=== PATIENT | female | born 2005 | race Caucasian/White ===

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

== ENCOUNTER 2025-04-21 16:37 | Emergency (ER) | payer MEDICAID, SELFPAY ==
[2025-04-21 17:03] VITALS: BP 129/78; PULSE 91; RESP 18; TEMP 37.2; O2SAT 96; BMI 43.8
--- NOTE | 2025-04-21 17:05 | ED_ITS ---
HPI - Skin/Abscess/Foreign Bdy General Chief complaint: Skin/Abscess/Foreign Body Stated complaint: Cyst on buttocks Time Seen by Provider: 04/21/25 21:42 Source: patient Mode of arrival: ambulatory Limitations: no limitations History of Present Illness ED Provider: Dr. Geneva Moreno HPI narrative: Patient comes to the emergency room complaining of a cyst in the lower back just above the buttocks. Patient states this is the 2nd time that she has a pilonidal cyst. Back in 2021 he had another cyst. Patient states this time it has been 3 days, no fever chills. Patient has been applying warm compresses, the cyst has not open yet or start draining. Related Data Home Medications ?Medication ?Instructions ?Recorded ?Confirmed fluoxetine 10 mg capsule 10 mg PO 01/02/23 multivitamin with folic acid 400 1 tab PO 01/02/23 mcg tablet (Daily-Mabel (with folic acid)) omeprazole 20 mg capsule,delayed 20 mg PO 01/02/23 release topiramate 25 mg tablet 25 mg PO 01/02/23 Previous Rx's ?Medication ?Instructions ?Recorded ibuprofen 600 mg tablet 600 mg PO Q6H PRN pain #30 tabs 12/26/22 cephalexin 500 mg capsule 500 mg PO BID #14 caps 04/21/25 doxycycline hyclate 100 mg tablet 100 mg PO BID #14 tabs 04/21/25 tramadol 50 mg tablet 50 mg PO BID PRN pain #7 tabs 04/21/25 Allergies Allergy/AdvReac Type Severity Reaction Status Date / Time No Known Allergies Allergy Verified 04/21/25 17:03 [No Known Allergies*] Review of Systems Review of Systems: Constitutional : No Weight loss, No Fever, No Chills, No Night Sweats, No Fatigue, No Malaise ENT/Mouth : No Hearing loss, No Ear Pain, No Nasal Congestion, No Sinus Pain, No Hoarseness, No sore throat, No Rhinorrhea, No Swallowing Difficulty Eyes: No Eye Pain, No Swelling, No Redness, No Foreign Body, No Discharge, No Vision Changes Cardiovascular : No Chest Pain, No SOB, No Dyspnea on Exertion, No Orthopnea, No Edema, No Palpitations Respiratory : No Cough, No Sputum, No Wheezing, No Smoke Exposure, No Dyspnea Gastrointestinal : No Nausea, No Vomiting, No Diarrhea, No Constipation, No abdominal Pain, No Hematochezia, No Melena Genitourinary : no irregular bleeding, No Dysuria, No Urinary Frequency, No Hematuria, No Urinary Incontinence, No Urgency, No Flank Pain, No Urinary Flow Changes, No Hesitancy Musculoskeletal : No joint pain, No Myalgias, No Joint Swelling Skin : Complaining of a pilonidal cyst Neuro : No Weakness, No Numbness, No Paresthesias, No Loss of Consciousness, No Dizziness, No Headache Psych : No Anxiety/Panic, No Depression, No SI/HI/AH/VH, No Social Issues, Heme/Lymph: No Bruising, No Bleeding,No Lymphadenopathy Endocrine : No Polyuria, No Polydipsia, No Temperature Intolerance FORMERLY [facility], [facility]–1983 Past Medical History Medical History Iron (Fe) deficiency anemia Depressed Acid reflux Anxiety Social History Social History Smoked in Last 30 Days: No Use of substances other than those prescribed or required for medical reasons: Yes Substance Use Type: Marijuana Substance Use Frequency: Chronic Longstanding Advance Directives: No Advance Directives Information Provided: No Patient : No Current occupational status: student Current occupation: rt hand Physical Exam Vital Signs: Vital Signs: Last Vital Signs Temp 97.8 F 04/21/25 20:27 Pulse 96 04/21/25 20:27 Resp 20 04/21/25 20:27 BP 107/61 04/21/25 20:27 Pulse Ox 99 04/21/25 20:27 O2 Del Method Room Air 04/21/25 20:27 BMI result Body Mass Index 43.8 Const: Other: Appearance: Alert. Oriented X3. No acute distress. Eyes: Pupils equal, round and reactive to light. ENT: Pharynx normal. Neck: Normal inspection. Neck supple. No lymph nodes noted. No crepitus CVS: Normal heart rate and rhythm. Pulses normal. Normal S1 and S2 Respiratory: No respiratory distress. Breath sounds normal. No Wheezing. No rales Abdomen: Soft and nontender. No rigidity. No distention. Skin: Skin warm and dry. Normal skin color. Normal skin turgor. With bedside ultrasound, 2.5 cm abscess was found, a proximally 3 cm long. Extremities: No lower extremity edema. No Lacerations. No Rash Neuro: Oriented X 3. No motor deficit. No sensory deficit. Moving all extremities. No slurred speech. CN 2 through 12 grossly intact Psych: calm, cooperative, normal affect Course Course Course Narrative: 04/21/25 1706 SERGEY [place] This is a Rapid Medical Examination (RME) performed by Haylee Vernon PA-C in triage. Full HPI, ROS, assessment and treatment plan per primary provider in the Main ED. Hx: 20 yo female hx pilonidal cyst/abscess here for eval of cyst to middle buttock x3 days. no drainage. hx similar requiring I&D. no fever, chills. PE/vitals: area not examined in triage Plan: further eval in back +/- I&d Medications Administered Discontinued Medications Generic Name Dose Route Start Last Admin Trade Name Wilmarq PRN Reason Stop Dose Admin Lidocaine/Epinephrine 20 ml 04/21/25 21:52 04/21/25 22:55 Lidocaine Hcl 1%/Epi 1:100,000 20 Ml Vial INFILTRATI 04/21/25 21:53 20 ml ONCE ONE Administration Oxycodone HCl 5 mg 04/21/25 21:53 04/21/25 22:55 Oxycodone Hcl Immed Release 5 Mg Tablet PO 04/21/25 21:54 5 mg ONCE ONE Administration Medical Decision Making Medical Decision Making [facility] Narrative: I discussed the physical exam with the patient, this pilonidal cyst needs draining. Patient agrees with the plan. Patient was numb with 10 mL of 1% lidocaine with epinephrine. A proximally 15 mL pus was drained. The cyst was rinsed multiple times with normal saline. Then it was packed. Procedures Abscess I/D Site: other (Pilonidal cyst) Local Anesthetic: lidocaine 1% and with epi Amount of anesthesia used (mL): 10 Technique: incised with blade and ultrasound guided Amount of fluid expressed (mL): 15 Sent for culture/gram staining?: No Irrigation: Yes Packing used?: iodoform Critical Care Time Critical Care Time Critical Care Time: Yes Total Critical Care Time: 35 Attestation: I have personally provided critical care time. Time includes review of lab data, radiology results, discussion with consultants, and monitoring for potential decompensation. Intervention performed as documented. Discharge Plan Discharge Clinical Impression: Cyst, pilonidal, with abscess Patient Disposition: Home, Self-Care Instructions: Pilonidal Cyst (ED) Additional Instructions: Please follow-up with your primary care physician tomorrow. If you have any worsening or new symptoms, please return to the emergency room or call 911 Prescriptions: New cephalexin 500 mg capsule 500 mg PO BID Qty: 14 0RF doxycycline hyclate 100 mg tablet 100 mg PO BID Qty: 14 0RF tramadol 50 mg tablet 50 mg PO BID PRN (Reason: pain) Qty: 7 0RF No Action ibuprofen 600 mg tablet 600 mg PO Q6H PRN (Reason: pain) Qty: 30 0RF fluoxetine 10 mg capsule 10 mg PO topiramate 25 mg tablet 25 mg PO multivitamin with folic acid [Daily-Mabel (with folic acid)] 400 mcg tablet 1 tab PO omeprazole 20 mg capsule,delayed release(DR/EC) 20 mg PO Referrals: Jerrod Zamarripa MD [Physician] - 04/26/25 Print Language: Romansh
[2025-04-21 20:27] VITALS: BP 107/61; PULSE 96; RESP 20; TEMP 36.6; O2SAT 99
--- OUTSIDE RECORDS SUMMARY | 2025-04-21 20:37 | XMS_ITS | Clinical Summary ---
Author Organization [facility] Address [address] [place] [address] Phone Care Team Providers Care Pbx Manager Name Role Phone Physician, No Pcp Primary Care Provider Unavaila ble Allergies No known active allergies Medications methocarbamoL (ROBAXIN) 750 mg tablet Take 1 tablet (750 mg total) by mouth 4 (four) times a day. 12 each 01/04/2025 Active Active Problems No known active problems Medical History Medical History Date Comments Asthma Social History Tobacco Use Types Packs/Day Years Used Date Smoking Tobacco: Never Assessed Comments Unknown Sex and Gender Information Value Date Recorded Sex Assigned at Female 01/04/2025 8:24 PM EST Legal Sex Female 5:00 PM EST Gender Identity Female 01/04/2025 8:24 PM EST Sexual Orientation Straight 01/04/2025 8: 24 PM EST Obstetrics History Comments IMPLANT BC Last Filed Vital Signs Vital Sign Reading Time Taken Comments Blood Pressure 123/75 01/04/2025 5:27 PM EST Pulse 80 01/04/2025 5:27 PM EST Temperature 37.1 ??C (98.8 ??F) 01/04/2025 5:27 PM ES T Respiratory Rate 18 01/04/2025 5:27 PM EST Oxygen Saturation 97% 01/04/2025 5:27 PM EST Inhaled Oxygen Concentration - - Weight 104 kg (230 lb) 01/04/2025 5:27 PM EST Height 157.5 cm (5' 2 ) 01/04/2025 5:27 PM EST Body Mass Index 42.07 01/04/2025 5:27 PM EST Plan of Treatment Health Maintenance Due Date Last Done Comments Pneumococcal Vaccine: Pediatrics (0 to 5 Years) and At-Risk Patients (6 to 64 Years) (1 of 1 - PPSV23) 02/05/2010 05/10/2005, 2004, 2004, Additional history exists Meningococcal B Vaccine (1 of 2 - Standard) 2020 Gonorrhea/Chlamydia Screening 04/23/2024 04/23/2023 COVID-19 Vaccine ( - season) 2024 Annual Well Child Visit (3-21 years old) 01/05/2025 03/12/2023 Depression Screening 01/05/2025 03/26/2023 Hepatitis C Screening 01/05/2025 Social Influencers of Health Screening 01/05/2025 Cervical Cancer Screening: Pap Smear 02/05/2025 Influenza Vaccine (Season Ended) 2025 11/01/2021, 09/08/2020, 10/17/2006, Additional history exists Cholesterol Screening (Lipid Panel) 01/17/2028 01/16/2023 DTaP,Tdap,and Td Vaccines (8 - Td or Tdap) 10/12/2032 10/12/2022, 08/03/2015, 04/04/2008, Additional history exists Hepatitis B Vaccines Completed 2004, 2004, 2004 HIB Vaccines Completed 05/10/2005, 07/20, 2004, Additional history exists IPV Vaccines Completed 03/31/2008, 07/20, 2004, Additional history exists MMR Vaccines Completed 03/31/2008, 02/07/2005 Varicella Vaccines Aged Out 04/04/2008, 02/07/2005 No longer eligible based on patient's age to complete this topic Hepatitis A Vaccines Completed 04/13/2011, 04/11/20 10 HPV Vaccines Completed 08/14/2016, 08/03/2015 Meningococcal ACWY Vaccine Completed 09/08/2020, HIV Screening Completed 07/17/2022 RSV Immunization Patients Under 20 months Aged Out No longer eligible based on patient's age to complete this topic Insurance [employer] Care Teams Pbx Manager Relationship Specialty Start Date End Date Physician, No Pcp PCP - General 01/04/25
[2025-04-21] MEDS: Lidocaine HCl 1%/Epi 1:100,000 20 ML VIAL INFILTRATI (22:55)
[2025-04-21] MEDS: oxyCODONE HCl Immed Release 5 MG TABLET PO (22:55)
[2025-04-21] MEDS: Doxycycline Monohydrate 100 MG CAPSULE PO (23:11)
[2025-04-21] MEDS: cephALEXin 500 MG CAPSULE PO (23:11)
[2025-04-21 23:29] VITALS: BP 107/61; PULSE 96; RESP 20; TEMP 36.6; O2SAT 99
== END 2025-04-21 23:20 | disposition home or self-care (01) ==
PROVIDERS: Emergency Provider Emergency Medicine
DX: L05.01 Pilonidal cyst with abscess (principal); L72.9 Follicular cyst of the skin and subcutaneous tissue, unspecified
CPT/HCPCS: 10060; 99284; J2004

== ENCOUNTER 2025-11-06 23:22 | Emergency (ER) | payer OTHER, SELFPAY ==
[2025-11-06 23:29] VITALS: BP 118/78; PULSE 112; RESP 18; TEMP 36.7; O2SAT 97; BMI 43.9
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
--- OUTSIDE RECORDS SUMMARY | 2025-11-07 00:41 | XMS_ITS | Clinical Summary ---
Author Organization [facility] Address [address] [place] [address] Care Team Providers Care Gelatin Powder Mixer Name Role Phone Preet Forrest MD Primary Care Provider Source Comments Please note that some or all of the patient's information could have additional privacy protections. State laws allow health care providers to render certain types of treatment to minors without parental consent. Please do not assume that this information can be shared solely by obtaining just the consent of the patient's parent/guardian. Please determine if all or part of the patient's care was rendered without parent/guardian involvement. And, if so, obtain the minor's consent prior to disclosure.[facility] Allergies Active Allergy Reactions Criticality Noted Date Comments Seasonal 07/21/2020 Medications DAILY-RASHAUN tablet TK 1 T PO D 0 Active cetirizine (ZYRTEC) 10 MG tablet TAKE 1 TABLET BY MOUTH EVERY DAY FOR ALLERGIES 1 Active ofloxacin (OCUFLOX) 0.3 % ophthalmic solution INSTILL 5 DROP BOTH EARS TWICE DAILY FOR 7 DAYS 1 Active EPINEPHrine (EPIPEN) 0.3 mg/0.3 mL injection Inject 0.3 mg into the muscle as needed for Anaphylaxis Active ALBUTEROL INHL Inhale into the lungs Active Active Problems No known active problems Social History Tobacco Use Types Packs/Day Years Used Date Smoking Tobacco: Never Smokeless Tobacco: Never Other Needs Answer Date Recorded Anything else about your child you'd like help w ith? Not on file 08/02/2023 Share good news about positive changes: Not on f ile 08/02/2023 Comments No Sex and Gender Information Value Date Recorded Sex Assigned at Not on file Legal Sex Female 9:01 AM EDT Gender Identity Not on file Sexual Orientation Not on file Last Filed Vital Signs Vital Sign Reading Time Taken Comments Blood Pressure 110/67 11/02/2021 8:26 AM EST Pulse 75 11/02/2021 8:26 AM EST Temperature - - Respiratory Rate - - Oxygen Saturation - - Inhaled Oxygen Concentration - - Weight 98.6 kg (217 lb 6 oz) 11/02/2021 8:26 AM EST Height 157.3 cm (5' 1.93 ) 11/02/2021 8:26 AM ES T Body Mass Index 39.85 11/02/2021 8:26 AM EST Plan of Treatment Health Maintenance Due Date Last Done Comments DTaP/TDAP/TD VACCINES (1 - Tdap) 02/05/2011 ADOLESCENT HIV SCREENING 02/05/2017 COVID-19 Vaccine (2023-2 5 season) 2025 INFLUENZA (#1) 2025 NIRSEVIMAB VACCINES UNDER 8 MONTHS Aged Out No longer eligible based on patient's age to complete this topic Insurance [facility] MEDICAID Care Teams Gelatin Powder Mixer Relationship Specialty Start Date End Date Preet Forrest MD PCP - General General Pediatrics 05/27/20
--- OUTSIDE RECORDS SUMMARY | 2025-11-07 00:41 | XMS_ITS | Clinical Summary ---
Author Organization [facility] Address [address] [place] [address] Phone Care Team Providers Care Crowning Inspector Name Role Phone Physician, No Pcp Primary [...] Orientation Straight 01/04/2025 8: 24 PM EST Last Filed Vital Signs Vital Sign Reading Time Taken Comments Blood Pressure 123/75 01/04/2025 5:27 PM EST Pulse 80 01/04/2025 5:27 PM EST Temperature 37.1 C (98.8 F) 01/04/2025 5:27 PM EST Respiratory Rate 18 01/04/2025 5:27 PM EST [...] 5 Years) and At-Risk Patients (6 to 49 Years) (1 of 1 - PPSV23, PCV20, or PCV21) 02/05/2010 05/10/2005, 2004, 2004, Additional history exists Meningococcal B Vaccine (1 of 2 - Standard) 2020 Gonorrhea/Chlamydia Screening 04/23/2024 04/23/2023 Depression Screening 11/18/2024 Annual Well Child Visit (3-21 years old) 01/05/2025 03/12/2023 Hepatitis C Screening 01/05/2025 Social Influencers of Health Screening 01/05/2025 Cervical Cancer Screening: Pap Smear 02/05/2025 COVID-19 Vaccine ( season) 2025 Influenza Vaccine (#1) 2025 , 09/08/2020, 10/17/2006, Additional history exists Cholesterol Screening (Lipid Panel) 01/17/2028 01/16/2023 DTaP,Tdap,and Td Vaccines (8 - Td or Tdap) 10/12/2032 10/12/2022, 08/03/2015, 04/04/2008, Additional history exists RSV Immunization Adult Patients (1 - 1-dose 75+ series) 02/05/2079 Hepatitis B Vaccines Completed 2004, 2004, 2004 HIB Vaccines Completed 05/10/2005, 07/20, 2004, Additional history exists IPV Vaccines Completed 03/31/2008, 07/20, 2004, Additional history exists MMR Vaccines Completed 03/31/2008, 02/07/2005 Varicella Vaccines Completed 04/04/2008, 02/07/2005 Hepatitis A Vaccines Completed 04/13/2011, 04/11/20 10 HPV Vaccines Completed 08/14/2016, 08/03/2015 Meningococcal ACWY Vaccine Completed 09/08/2020, HIV Screening Completed 07/17/2022 RSV Immunization Patients Under 20 months Aged Out No longer eligible based on patient's age to complete this topic Insurance [employer] Care Teams Crowning Inspector Relationship Specialty Start Date End Date Physician, No Pcp PCP - General 01/04/25
--- OUTSIDE RECORDS SUMMARY | 2025-11-07 00:41 | XMS_ITS | Clinical Summary ---
Author Organization [facility] Address [address] [place] [id number] Phone Care Team Providers Care Cytogenetics Technologist Name Role Phone Preet Forrest MD Primary Care Provider Allergies No known active allergies Medications No known medications Active Problems No known active problems Social History Tobacco Use Types Packs/Day Years Used Date Smoking Tobacco: Never Assessed Education Answer Date Recorded Are you interested in more education? Not on helene e 03/15/2023 Are you concerned about learning? Not on file 03/15/2023 No 03/15/2023 No 03/15/2023 Digital Access Answer Date Recorded No 04/16/2023 No 04/16/2023 No 04/16/2023 Reliable internet access at home? Not on file 04/16/2023 Device with a working camera? Not on file Comments Unknown Sex and Gender Information Value Date Recorded Sex Assigned at Not on file Legal Sex Female 9:36 AM EDT Gender Identity Not on file Sexual Orientation Not on file Last Filed Vital Signs Vital Sign Reading Time Taken Comments Blood Pressure 120/78 05/28/2018 10:38 AM EDT Pulse 76 05/28/2018 10:38 AM EDT Temperature 36.5 C (97.7 F) 05/28/2018 10:38 AM EDT Respiratory Rate 18 05/28/2018 10:38 AM EDT Oxygen Saturation - - Inhaled Oxygen Concentration - - Weight 107.5 kg (237 lb) 05/28/2018 10:38 AM EDT Height 158 cm (5' 2.21 ) 05/28/2018 10:38 AM EDT Body Mass Index 43.06 05/28/2018 10:38 AM EDT Plan of Treatment Health Maintenance Due Date Last Done Comments DEPRESSION SCREENING 2016 SMOKING Hx and SMOKELESS TOBACCO SCREENING 02/05/2017 CHLAMYDIA SCREENING 2020 MENINGOCOCCAL VACCINES (B) (1 of 2 - Standard) 2020 ADOLESCENT UNIVERSAL LIPID SCREENING 02/05/2021 HEPATITIS C SCREENING 02/05/2022 HIV ONE-TIME SCREENING (18-65 YEARS) 02/05/2022 PAP SMEAR 02/05/2025 INFLUENZA VACCINE (#1) 2025 0, 10/17/2006, 09/04/2005, Additional history exists COVID-19 VACCINE ( - 2024- season) 2025 Adult Td,Tdap Booster 08/03/2025 08/03/2015 COMBINED DTaP,Tdap,Td (7 - Td or Tdap) 08/03/2025 08/03/2015, 04/04/2008, 05/10/2005, Additional history exists HIB VACCINES Completed 05/10/2005, 07/20, 2004, Additional history exists PNEUMOCOCCAL VACCINES (0-49 years) Aged Out 05/10/2005, 2004, 2004, Additional history exists No longer eligible based on patient's age to complete this topic MMR VACCINES Completed 03/31/2008, 02/07/2005 HEPATITIS A VACCINES Completed 04/13/2011, 04/11/20 10 HPV VACCINES Completed 08/14/2016, 08/03/2015 MENINGOCOCCAL VACCINES (ACWY) Completed 09/08/2020, 08/03/2015 Medical Devices Not on file Insurance [facility] C3 ACO C3 ACO C3 ACO C3 ACO C3 ACO C3 ACO C3 ACO [facility] C3 ACO Care Teams Cytogenetics Technologist Relationship Specialty Start Date End Date Preet Forrest MD [address] [place] [address] [phone] PCP - General Pediatrics 05/19/18 Additional Source Comments The information contained in this document represents components of the legal health record. It is not the complete legal health record.[facility]
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
--- OUTSIDE RECORDS SUMMARY | 2025-11-07 00:41 | XMS_ITS | Data Portability ---
Author Organization [place] - [facility], Allergy Address [address] [place] [id number] Care Team Providers Care Operations Leader Name Role Phone GRANT ALEJANDRO Primary Care Provider Assessment Encounter Date Assessment Date Assessment LastModified by Organization Details LastModified Time 11/09/2024 11/09/2024 19yo F with allergic rhinitis and history of bilateral chronic serous otitis s/p tubes x3 presents for evaluation of bilateral otorrhea. Otorrhea was self-limiting and hearing returned to baseline. Patient reports one ear infection in the last year. Cerumen impaction removed from the left EAC, which patient tolerated well. Otologic exam demonstrated TMs are intact with patchy tympanosclerosis . Middle ear spaces appear well-aerated. Bilateral PE tubes removal and paper patch myringoplasty on 09/[address] Last. Recommend Q-tip avoidance. Recommend follow-up as needed. [email or web address] Not available 11/09/2024 13:51:51 Plan of Treatment Reminders Order Date Submit Date Provider Last Modified By Organization Details Last Modified Time Details Appointments Establish ed 15 2025 02:45P M TONY HAMILTON PA-C Not available Not available Not available Lab None recorded. Referral None recorded. Procedures None recorded. Surgeries None recorded. Imaging None recorded. Medication Orders None recorded. Patient TargetsNo targets recorded. Patient InstructionsNo instructions recorded. Reason for Referral None Reported. Problems Name Problem SNOMED Code Status Onset Date Resolution Date Notes Provider Name and Address Organization Details Recorded Time Dysfuncti on of eustachia n tube 34865203 Active 2013 Eustachia n tube dysfuncti on; CMS Risk: low risk CMS Treatment : establish ed problem (to examiner) : unstable or worsening Note: Date Diagnosed : 4 9:32 AM (381.81) Not Available formerly [facility] 02:41:52 Allergic rhinitis 86766430 Active 2014 Allergic rhinitis: Due to other allergen; CMS Risk: low risk CMS Treatment : establish ed problem (to examiner) : stable or improved Note: Changed from 477 to 477.8 (10/28/20 11:15 AM) , Date Diagnosed : 4 9:32 AM (477) ; Start Date : 4 Allergi c rhinitis: Due to other allergen; CMS Risk: low risk CMS Treatment : establish ed problem (to examiner) : stable or improved Note: Date Diagnosed : 11/28/2021 9:40 AM (477.8) ; Start Date : 4 Allergi c rhinitis: Due to other allergen; CMS Risk: low risk CMS Treatment : establish ed problem (to examiner) : stable or improved Note: Date Diagnosed : 11/19/2019 1:12 PM (477.8) ; Start Date : 4 Allergi c rhinitis: Due to other allergen; CMS Risk: low risk CMS Treatment : establish ed problem (to examiner) : stable or improved Note: Date Diagnosed : 12/09/2020 1:29 PM (477.8) ; Start Date : 4 Allergi c rhinitis: Due to other allergen; CMS Risk: low risk CMS Treatment : establish ed problem (to examiner) : stable or improved Note: Date Diagnosed : 12/16/2019 2:15 PM (477.8) ; Start Date : 4 Allergi c rhinitis: Due to other allergen; CMS Risk: low risk CMS Treatment : establish ed problem (to examiner) : stable or improved Note: Date Diagnosed : 12/16/2020 1:43 PM (477.8) ; Start Date : 4 Allergi c rhinitis: Due to other allergen; CMS Risk: low risk CMS Treatment : establish ed problem (to examiner) : stable or improved Note: Date Diagnosed : 11/25/2020 1:56 PM (477.8) ; Start Date : 4 Allergi c rhinitis: Due to other allergen; CMS Risk: low risk CMS Treatment : establish ed problem (to examiner) : stable or improved Note: Date Diagnosed : 11/26/2019 2:02 PM (477.8) ; Start Date : 4 Allergi c rhinitis: Due to other allergen; CMS Risk: low risk CMS Treatment : establish ed problem (to examiner) : stable or improved Note: Date Diagnosed : 2 3:43 PM (477.8) ; Start Date : 4 Allergi c rhinitis: Due to other allergen; CMS Risk: low risk [facility] Treatment : establish ed problem (to examiner) : stable or improved Note: Date Diagnosed : 1 2:01 PM (477.8) ; Start Date : 4 Allergi c rhinitis: Due to other allergen; CMS Risk: low risk [facility] Treatment : establish ed problem (to examiner) : stable or improved Note: Date Diagnosed : 9 2:19 PM (477.8) ; Start Date : 4 Allergi c rhinitis: Due to other allergen; CMS Risk: low risk [facility] Treatment : establish ed problem (to examiner) : stable or improved Note: Date Diagnosed : 9 1:19 PM (477.8) ; Start Date : 4 Allergi c rhinitis: Due to other allergen; CMS Risk: low risk [facility] Treatment : establish ed problem (to examiner) : stable or improved Note: Date Diagnosed : 1 1:21 PM (477.8) ; Start Date : 4 Allergi c rhinitis: Due to other allergen; CMS Risk: low risk [facility] Treatment : establish ed problem (to examiner) : stable or improved Note: Date Diagnosed : 9 10:09 AM (477.8) ; Start Date : 4 Allergi c rhinitis: Due to other allergen; CMS Risk: low risk [facility] Treatment : establish ed problem (to examiner) : stable or improved Note: Date Diagnosed : 08/20/2019 5:24 PM (477.8) ; Start Date : 4 Allergi c rhinitis: Due to other allergen; CMS Risk: low risk CMS Treatment : establish ed problem (to examiner) : stable or improved Note: Date Diagnosed : 1 1:58 PM (477.8) ; Start Date : 4 Allergi c rhinitis: Due to other allergen; CMS Risk: low risk CMS Treatment : establish ed problem (to examiner) : stable or improved Note: Date Diagnosed : 0 11:00 AM (477.8) ; Start Date : 4 Allergi c rhinitis: Due to other allergen; CMS Risk: low risk CMS Treatment : establish ed problem (to examiner) : stable or improved Note: Date Diagnosed : 9 1:41 PM (477.8) ; Start Date : 4 Allergi c rhinitis: Due to other allergen; CMS Risk: low risk [facility] Treatment : establish ed problem (to examiner) : stable or improved Note: Date Diagnosed : 9 11:27 AM (477.8) ; Not Available formerly [facility] 4 02:41:43 Bilateral disorder of Eustachia n tubes 15689206343 46854 Active 2014 Other specified disorders of Eustachia n tube, bilateral ; Note: Date Diagnosed : 5 9:26 AM (H69.83) Not Available [facility] 4 02:41:46 Bilateral chronic serous otitis 510436439 Active 2019 Chronic serous otitis media, bilateral ; Note: Date Diagnosed : 04/05/2020 10:19 AM (H65.23) Not Available formerly [facility] 4 02:41:49 Conductiv e hearing loss, bilateral 606191966 Active 2019 Conductiv e hearing loss, bilateral ; Note: Date Diagnosed : 04/05/2020 9:45 AM (H90.0) Not Available [facility] 4 02:41:45 Impacted cerumen of bilateral ears 93759373086 94397 Active 2019 Impacted cerumen, bilateral ; Note: Date Diagnosed : 0 2:09 PM (H61.23) Not Available [facility] 4 02:41:49 Allergic rhinitis caused by pollen 60649162 Active 2020 Allergic rhinitis due to pollen; Note: Date Diagnosed : 10/19/2021 2:31 PM (J30.1) Allergi c rhinitis due to pollen; Note: Date Diagnosed : 0 2:09 PM (J30.1) ; Start Date : 0 Allergi c rhinitis due to pollen; Note: Date Diagnosed : 9 10:16 AM (J30.1) ; Start Date : 9 Allergi c rhinitis due to pollen; Note: Date Diagnosed : 9 10:28 AM (J30.1) ; Start Date : 9 Allergy NOS due to pollen; Note: Date Diagnosed : 9 10:16 AM (J30.1) ; Start Date : 9 Allergi c rhinitis due to pollen; Note: Date Diagnosed : 7 3:10 PM (J30.1) ; Start Date : 7 Not Available formerly [facility] 4 02:41:49 Otorrhea of bilateral ears 37237722175 77981 Active 2021 Otorrhea, bilateral ; Note: Date Diagnosed : 11/28/2021 12:43 PM (H92.13) Not Available formerly [facility] 4 02:41:52 Otorrhea of right ear 85872570319 82770 Active 2021 Otorrhea, right ear; Note: Date Diagnosed : 03/22/2022 1:52 PM (H92.11) Not Available formerly [facility] 4 02:41:47 Otorrhea of left ear 43257412457 89504 Active 2022 Otorrhea, left ear; Note: Date Diagnosed : 04/02/2023 4:14 PM (H92.12) Not Available formerly [facility] 4 02:41:45 Problem Notes None recorded. Procedures Surgical History Date Name Laterality Status Provider Name and Address Organization Details Recorded Time 4 Cerumen removal without microscope left completed TONY HAMILTON PA-C [address] [place] [address], [phone], [facility] - [facility] 11/09/2024 13:44:34 Imaging Results None recorded. Procedure Notes None recorded. Medical Equipment None Reported. Medications Name Sig Start Date Stop Date Status Note LastModified by Organization Details LastModified Time fluoxetin e 40 mg capsule 03/05 completed Medicati on ID: [id number] D uration Value: 30 Brand Name: fluoxeti ne Send Method: E-Prescr ibed Sub s Allowed: subs OK Speci al Instruct ion: take 1 capsule by mouth once daily Me dication GenericN yulisa: fluoxeti ne Not Available Not Available Not Available cetirizin e 10 mg tablet 03/05 completed Medicati on ID: [id number] D uration Value: 30 Brand Name: cetirizi ne Send Method: E-Prescr ibed Sub s Allowed: subs OK Speci al Instruct ion: take 1 tablet by mouth once daily if needed for allergie s Medica tionGene ricName: cetirizi ne Not Available Not Available Not Available topiramat e 25 mg tablet active Medicati on ID: [id number] B rand Name: topirama te Send Method: E-Prescr ibed Sub s Allowed: subs OK Speci al Instruct ion: TAKE 1 TABLET BY MOUTH EVERY NIGHT AT BEDTIME Medicati onGeneri cName: topirama te Not Available Not Available Not Available Ciloxan 0.3 % eye drops 2019 active Medicati on ID: [id number] D uration Value: 5 Prescri bed By Name: Jm Plasencia nd Name: Ciloxan Send Method: E-Prescr ibed Sub s Allowed: subs OK Speci al Instruct ion: Instill 4 drops twice a day into the affected ear Medi cationGe nericNam e: Ciloxan Not Available Not Available Not Available sulfameth oxazole 800 mg-trimet hoprim 160 mg tablet TAKE 1 TABLET BY MOUTH TWICE A DAY FOR 7 DAYS active Not Available Not Available No t Available tramadol 50 mg tablet TAKE 1 TABLET BY MOUTH 2 TIMES A DAY NEEDED FOR PAIN active Not Available Not Available No t Available lidocaine -prilocai ne 2.5 %-2.5 % topical cream 03/15 completed Medicati on ID: [id number] Pre scribed By Name: Jm Plasencia nd Name: lidocain e-priloc chris Sen d Method: E-Prescr ibed Sub s Allowed: subs OK Speci al Instruct ion: apply to bilateal upper arms one hour prior to testing Medicati onGeneri cName: lidocain e-priloc chris Not Available Not Available Not Available cephalexi n 500 mg capsule TAKE ONE TABLET BY MOUTH TWO TIMES A DAY 10/18 completed Not Available Not Available Not Available fluoxetin e 10 mg capsule active Medicati on ID: [id number] B rand Name: fluoxeti ne Send Method: E-Prescr ibed Sub s Allowed: subs OK Speci al Instruct ion: TAKE ONE CAPSULE BY MOUTH DAILY IN THE MORNING Medicati onGeneri cName: fluoxeti ne Not Available Not Available Not Available omeprazol e 20 mg capsule,d elayed release active Medicati on ID: [id number] B rand Name: omeprazo le Send Method: E-Prescr ibed Sub s Allowed: subs OK Medic ationGen ericName : omeprazo le Not Available Not Available Not Available epinephri ne 0.3 mg/0.3 mL injection , auto-inje ctor Inject 1 pen injector single dose as needed 03/05 completed Medicati on ID: [id number] D uration Value: 1 Brand Name: epinephr ine Send Method: E-Prescr ibed Sub s Allowed: subs OK Medic ationGen ericName : epinephr ine Not Available Not Available Not Available ibuprofen 600 mg tablet active Medicati on ID: [id number] B rand Name: ibuprofe n Send Method: E-Prescr ibed Sub s Allowed: subs OK Speci al Instruct ion: TAKE 1 TABLET BY MOUTH EVERY 6 HOURS NEEDED FOR PAIN Med icationG enericNa me: ibuprofe n Not Available Not Available Not Available fluoxetin e 20 mg capsule 03/26 completed Medicati on ID: [id number] D uration Value: 30 Reason: () Brand Name: fluoxeti ne Send Method: E-Prescr ibed Sub s Allowed: subs OK Speci al Instruct ion: take 1 capsule by mouth once daily WITH 10MG CAPSULE Medicati onGeneri cName: fluoxeti ne Not Available Not Available Not Available fluticaso ne propionat e 50 mcg/actua tion nasal spray,aaron pension 1 spray into both nostrils once a day 09/11 completed Medicati on ID: [id number] D uration Value: 30 Prescri bed By Name: Jm Plasencia nd Name: Flonase Send Method: E-Prescr ibed Sub s Allowed: subs OK Speci al Instruct ion: 1 spray each nostril qd Medic ationGen ericName : Flonase Medicati on ID: [id number] D uration Value: 30 Prescri bed By Name: Jm Plasencia nd Name: Flonase Send Method: E-Prescr ibed Sub s Allowed: subs OK Speci al Instruct ion: 1 spray each nostril qd Medic ationGen ericName : Flonase Not Available Not Available Not Available doxycycli ne hyclate 100 mg tablet TAKE 1 TABLET MY MOUTH 2 TIMES A DAY 10/18 completed Not Available Not Available Not Available amoxicill in 875 mg-potass ium clavulana te 125 mg tablet by mouth 2022 active Medicati on ID: [id number] B rand Name: amoxicil tavon-pot clavulan ate Send Method: E-Prescr ibed Sub s Allowed: subs OK Speci al Instruct ion: Take 1 tablet by mouth every 12 hours Me dication GenericN yulisa: amoxicil tavon-pot clavulan ate Not Available Not Available Not Available Ventolin HFA 90 mcg/actua tion aerosol inhaler INHALE 2 PUFFS BY MOUTH EVERY 4 HOURS NEEDED FOR SHORTNES S OF BREATH OR WHEEZING active Not Available Not Available No t Available TobraDex 0.3 %-0.1 % eye drops,aaron pension Apply 4 drop twice a day 2022 active Medicati on ID: [id number] D uration Value: 10 Brand Name: TobraDex Send Method: E-Prescr ibed Sub s Allowed: subs OK Speci al Instruct ion: Instill 4 drops in the affect ear BID for 10 days Med icationG enericNa me: TobraDex Not Available Not Available Not Available ciproflox acin 0.3 %-dexamet hasone 0.1 % ear drops,aaron pension Instill 4 drop into left ear twice a day as directed 2022 active Medicati on ID: [id number] D uration Value: 14 Brand Name: yamilexlo xacin-de xamethas one Send Method: E-Prescr ibed Sub s Allowed: subs OK Medic ationGen ericName : ciproflo xacin-de xamethas one Not Available Not Available Not Available multivita min 03/05 completed Medicati on ID: [id number] B rand Name: multivit fabian Sen d Method: E-Prescr ibed Sub s Allowed: subs OK Medic ationGen ericName : multivit fabian Not Available Not Available Not Available ProAir HFA 03/05 completed Medicati on ID: [id number] D uration Value: 30 Brand Name: ProAir HFA Send Method: E-Prescr ibed Sub s Allowed: subs OK Speci al Instruct ion: INHALE 2 TO 4 PUFFS BY MOUTH EVERY 4 HOURS. ADMINIST ER WITH SPACE... (REFER TO PRESCRIP TION NOTES). Medicati onGeneri cName: ProAir HFA Not Available Not Available Not Available Flovent Diskus 50 mcg/actua tion powder for inhalatio n 1 spray into both nostrils once a day 09/11 completed Medicati on ID: [id number] D uration Value: 30 Prescri bed By Name: Jm Plasencia nd Name: Flonase Send Method: E-Prescr ibed Sub s Allowed: subs OK Speci al Instruct ion: 1 spray each nostril qd Medic ationGen ericName : Flonase Not Available Not Available Not Available Flovent Diskus 250 mcg/actua tion powder for inhalatio n 12/03 completed Medicati on ID: [id number] D uration Value: 30 Reason: () Brand Name: Flovent Diskus S end Method: E-Prescr ibed Sub s Allowed: subs OK Medic ationGen ericName : Flovent Diskus Not Available Not Available Not Available Vitamin D3 50 mcg (2,000 unit) capsule 03/26 completed Medicati on ID: [id number] D uration Value: 30 Reason: () Brand Name: Vitamin D3 Send Method: E-Prescr ibed Sub s Allowed: subs OK Speci al Instruct ion: take 1 capsule by mouth once daily Me dication GenericN yulisa: Vitamin D3 Not Available Not Available Not Available Daily-Vit e (with folic acid) 400 mcg tablet active Medicati on ID: [id number] B rand Name: Daily-Vi te (with folic acid) Se nd Method: E-Prescr ibed Sub s Allowed: subs OK Speci al Instruct ion: TAKE 1 TABLET BY MOUTH EVERY DAY Medi cationGe nericNam e: Daily-Vi te (with folic acid) Not Available Not Available Not Available Vitals Date Recorded Body height Body mass index (BMI) Body mass index (BMI) [Percentile] Per age and sex Body weight Provider Name and Address Organization Details Last Updated DateTime 11/09/2024 157.48 cm 42.1 kg/m2 98 % 533727.2 5 g Yolanda Booker [place] - [facility] 11/09/2024 13:26:43 Social History None recorded. Functional Status None recorded. Mental Status None recorded. Family History Nothing Reported. Medical History No medical history recorded. Gynecological HistoryNo gynecological history recorded. Obstetrics History GPAL:G 0 P 0 0 0 0 Past Encounters Encounter ID Performer Location Encounter Start Date Encounter Closed Date Diagnosis/Indication Diagnosis SNOMED-CT Code Diagnosis ICD10 Code Diagnosis IMO Codes Diagnosis Note [id number] TONY HAMILTON PA-C [facility] [address] [phone] 11/09/2024 13:14:48 11/09/2024 13:40:50 Ear examination normal 097288191 Z01.10 Health Concerns Section Related Observation LastModified by Organization Detai ls LastModified Time None Recorded Concern Status LastModified by Organization Details LastModified Time None Recorded Advance Directives Directive None Recorded Payers Insurance Date Sequence Insurance Name Policy Number Policy Fernandez Covered Member ID Fernandez Member ID Guarantor Name 10/18/2025 1 [place] [facility] Catie Reagan [id number] Niki Reagan Notes Date Note Type Note Provider Name and Address Organization Details Recorded Time 11/09/2024 text/html ROS as noted in the HPI 19yo F with allergic rhinitis and history of bilateral chronic serous otitis s/p tubes x3 presents for evaluation of bilateral otorrhea. This occurred 4 weeks ago, lasted 3 days, and resolved on its own. She reports associated otalgia. The ears popped and released malodorous otorrhea. Endorses her hearing returned to baseline. TYLER PARKER MD [address] [place] [address], [place], [phone], [facility] - [facility] 11/12/2024 08:42:26 OBGyn Episode No OBEpisode recorded.
[2025-11-07 00:47] VITALS: BP 110/74; PULSE 99; RESP 18; TEMP -17.7; TEMP 0; O2SAT 98
== END 2025-11-07 00:48 | disposition home or self-care (01) ==
PROVIDERS: Emergency Provider Student in an Organized Health Care Education/Training Program; PCP Internal Medicine
DX: S39.012A Strain of muscle, fascia and tendon of lower back, initial encounter (principal); V43.61XA Car passenger injured in collision with sport utility vehicle in traffic accident, initial encounter; Y93.89 Activity, other specified; Y92.414 Local residential or business street as the place of occurrence of the external cause; Y99.9 Unspecified external cause status
CPT/HCPCS: 99283; 99284